=== PATIENT | female | born 1940 | race Caucasian/White ===

== ENCOUNTER 2017-02-09 14:06 | Outpatient (CLI) | payer MEDICARE, BC ==
--- NOTE | 2017-02-09 16:17 | XRAY Report ---
THREE VIEW LEFT ANKLE: 02/09/2017 CLINICAL INDICATION: Chronic ankle pain. FINDINGS: AP, lateral, and oblique views of the left ankle demonstrate no evidence of fracture or di slocation. The joint spaces are preserved. No effusion is present. IMPRESSION: NORMAL LEFT ANKLE. JOB #: [id number] EXT JOB #:[id number]
== END 2017-02-09 14:07 | disposition home or self-care (01) ==
LOC: DI 14:06
PROVIDERS: ATTEND Podiatrist
DX: M25.572 Pain in left ankle and joints of left foot (principal)

== ENCOUNTER 2018-10-11 12:41 | Emergency (ER) | payer MEDICARE ==
[2018-10-11 12:57] VITALS: BP 137/87
--- NOTE | 2018-10-11 14:25 | CT Report ---
Reason: fall, head injury, +LOC Procedure Date: 10/11/2018 Accession Number: [id number] / [id number] Procedure: CT - Head W/O CPT Code: FULL RESULT: EXAM: CT HEAD EXAM DATE: 10/11/2018 02:03 PM. CLINICAL HISTORY: Fall. COMPARISON: None. TECHNIQUE: Multiaxial CT images were obtained from the foramen magnum to the vertex. Reformats: Sagittal and coronal. IV contrast: None. In accordance with CT protocol optimization, one or more of the following dose reduction techniques were utilized for this exam: automated exposure control, adjustment of mA and/or KV based on patient size, or use of iterative reconstructive technique. FINDINGS: Parenchyma: No intraparenchymal hemorrhage. No evidence of mass, midline shift, or CT findings of acute infarction. Hypodensity within the left basal ganglia could represent remote lacunar infarct or prominent perivascular space. Watson-white differentiation is distinct. Extraaxial Spaces: Normal for age. No subdural or epidural collections identified. Ventricles: Normal in size and position. Sinuses and Orbits: Imaged paranasal sinuses, orbits, and mastoids show no significant abnormality. Bones: No evidence of fracture or calvarial defect. Other: There is mild posterior scalp soft tissue swelling. IMPRESSION: No acute intracranial CT abnormality. There is no evidence of hemorrhage or mass-effect. RADIA
--- NOTE | 2018-10-11 14:30 | ED Physician Documentation ---
PD HPI HEAD INJURY - Stated complaint Stated Complaint: GLF - Chief complaint Chief Complaint: Neuro - History obtained from History obtained from: Patient - History of Present Illness Mechanism of head injury: Fell Where head injury occurred: Street Timing - onset: How many hours ago (1) Pain level max: 5 Pain level now: 1 Location of injury: Back Quality of pain: Pain, Aching Associated symptoms: LOC (3-5 seconds). No: AMS, Amnesia, Nausea / vomiting, Neck pain, Paresthesias, Seizures, Ear drainage, Nasal drainage Symptoms improve with: Rest Symptoms worsen with: Palpation, Movement Contributing factors: No: Anticoagulated, Intoxicated Similar symptoms before: Has not had sx before Recently seen: Not recently seen Review of Systems Constitutional: denies: Fever, Chills Respiratory: denies: Cough Skin: denies: Rash Musculoskeletal: denies: Neck pain, Back pain Neurologic: denies: Focal weakness, Numbness, Confused, Altered mental status PD PAST MEDICAL HISTORY - Past Medical History Past Medical History: No - Past Surgical History Past Surgical History: No - Allergies Allergies/Adverse Reactions: Allergies Allergy/AdvReac Type Severity Reaction Status Date / Time No Known Drug Allergies Allergy Verified 10/11/18 12:51 - Living Situation Living Situation: reports: With family Living Arrangement: reports: At home - Social History Does the pt have substance abuse?: No - Family History Family history: reports: Non contributory PD ED PE NORMAL - Vitals Vital signs reviewed: Yes - General General: Alert and oriented X 3, No acute distress, Well developed/nourished - HEENT HEENT: PERRL, EOMI, Ears normal, Moist mucous membranes, Pharynx benign, Other (Occipital abrasion. Small hematoma. No palpable skull fractures) - Neck Neck: Supple, no meningeal sign, No bony TTP - Cardiac Cardiac: RRR, Strong equal pulses - Respiratory Respiratory: No respiratory distress, Clear bilaterally - Abdomen Abdomen: Soft, Non tender, Non distended - Back Back: No spinal TTP - Derm Derm: Warm and dry - Extremities Extremities: Normal ROM s pain - Neuro Neuro: Alert and oriented X 3, chair installer 2-12 intact, No motor deficit, No sensory deficit, Normal speech Eye Opening: Spontaneous Motor: Obeys Commands Verbal: Oriented GCS Score: 15 - Psych Psych: Normal mood, Normal affect Results - Vitals Vitals: Vital Signs - 24 hr 10/11/18 12:48 Temperature 36.5 C Heart Rate 92 Respiratory 18 Rate Blood Pressure 137/87 H O2 Saturation 97 Oxygen O2 Source Room air - Rads (name of study) Head CT Radiology: Prelim report reviewed, EMP read contemporaneously, See rad report (No acute intracranial abnormality) PD MEDICAL DECISION MAKING - ED course Complexity details: reviewed results, re-evaluated patient, considered differential, d/w patient, d/w family ED course: 78-year-old female presents to the emergency department with a closed head injury today. Negative head CT. No lacerations. Tetanus is up-to-date. Head injury instructions given at bedside. Patient counseled regarding signs and symptoms for which I believe and urgent re-evaluation would be necessary. Patient with good understanding of and agreement to plan and is comfortable going home at this time This document was made in part using voice recognition software. While efforts are made to proofread this document, sound alike and grammatical errors may oc cur. Departure - Departure Disposition: 01 Home, Self Care Clinical Impression: Closed head injury Qualifiers: Encounter type: initial encounter Qualified Code(s): S09.90XA - Unspecified injury of head, initial encounter Condition: Good Instructions: ED Head Injury Closed Follow-Up: Marlys Rodriguez MD [Primary Care Provider] - Within 1 week Comments: Your head CT is normal today. Return if you worsen. Keep the wound clean.
== END 2018-10-11 14:51 | disposition home or self-care (01) ==
LOC: ED 12:41
DX: S09.90XA Unspecified injury of head, initial encounter (principal); W00.0XXA Fall on same level due to ice and snow, initial encounter; Y92.410 Unspecified street and highway as the place of occurrence of the external cause
CPT/HCPCS: 70450; 99283

== ENCOUNTER 2023-02-25 19:06 | Emergency (ER) | payer MEDICARE ==
[2023-02-25] MEDS ORDERED: PROCAINAMIDE 1,000 MG in SODIUM CHLORIDE 0.9% 240 ML IV STA (19:16)
--- NOTE | 2023-02-25 19:19 | ED Physician Documentation ---
History of Present Illness - Stated complaint Stated Complaint: HEART PX - History obtained from History obtained from: Patient - Additonal information Additional information: 82-year-old woman who is anticoagulated with a DOAC and has paroxysmal atrial fibrillation and has had heart fluttering and rapid irregular heartbeat since yesterday. It is not painful. No shortness of breath. Feels like prior episodes of A-fib, that these usually go away faster. She did try to take a couple extra doses of metoprolol which was not helpful. She has never needed to be cardioverted. PD PAST MEDICAL HISTORY - Past Surgical History Past Surgical History: No - Present Medications Home Medications: Ambulatory Orders Medication Instructions Recorded Confirmed Apixaban [Eliquis] 2.5 mg PO 02/25/23 Cyclosporine [Restasis Multidose] 02/25/23 Metoprolol Succinate [Toprol Xl] 25 mg PO ONCE 02/25/23 02/25/23 Nitrofurantoin Macrocrystal 50 mg PO 02/25/23 [Macrodantin] estradioL vaginal [Estrace vaginal] 02/25/23 - Allergies Allergies/Adverse Reactions: Allergies Allergy/AdvReac Type Severity Reaction Status Date / Time Sulfa (Sulfonamide Allergy Unknown Verified 02/25/23 19:11 Antibiotics) - Social History Does the pt have substance abuse?: No PD ED PE NORMAL - Vitals Vital signs reviewed: Yes - General General: Alert and oriented X 3, No acute distress - Cardiac Cardiac: Other (Rapid and irregular without murmur) - Respiratory Respiratory: Clear bilaterally - Abdomen Abdomen: Non tender - Extremities Extremities: No edema - Neuro Neuro: Alert and oriented X 3, Normal speech Results - Vitals Vitals: Vital Signs - 24 hr 02/25/23 02/25/23 02/25/23 19:25 19:31 19:40 Temperature 36.8 C Heart Rate 114 H 123 H 119 H Respiratory 15 13 16 Rate Blood Pressure 143/96 H 122/78 122/78 O2 Saturation 99 96 99 02/25/23 02/25/23 02/25/23 20:05 20:24 20:36 Temperature Heart Rate 93 81 85 Respiratory 18 19 16 Rate Blood Pressure 117/83 H 135/95 H 120/95 H O2 Saturation 100 100 99 02/25/23 02/25/23 21:09 21:27 Temperature Heart Rate 85 67 Respiratory 16 22 Rate Blood Pressure 128/81 H 130/90 H O2 Saturation 97 100 Oxygen O2 Source Room air - EKG (time done) 1911 EKG releavant findings:: EKG personally interpreted by author of this note. Relevant findings are: Rate: Rate (enter#) (92) Rhythm: Atrial fibrillation [place]: Normal QRS: Normal Ischemia: Non specific changes. No: ST elevation c/w ischemia, ST depression 2119 EKG releavant findings:: EKG personally interpreted by author of this note. Relevant findings are: Rate: Rate (enter#) (68) Rhythm: NSR (w pac), LAE Intervals: Prolonged VT, Prolonged QT Ischemia: No: ST elevation c/w ischemia, ST depression Computer interpretation: Agree with computer - Labs Labs: Laboratory Tests 02/25/23 02/25/23 19:20 19:20 WBC 8.6 RBC 4.60 Hgb 13.3 Hct 41.7 MCV 90.7 MCH 28.9 MCHC 31.9 L RDW 14.2 Plt Count 220 MPV 10.1 Neut # (Auto) 5.1 Lymph # (Auto) 2.6 [place] # (Auto) 0.7 Eos # (Auto) 0.1 Baso # (Auto) 0.1 Absolute Nucleated RBC 0.00 Nucleated RBC % 0.0 Sodium 141 Potassium 4.4 Chloride 107 Carbon Dioxide 25 Anion Gap 9.0 BUN 30 H Creatinine 0.8 Estimated GFR (MDRD) 69 L Glucose 116 H Calcium 9.0 Magnesium 2.3 Procedures - Procedural sedation Sedation prep: Informed consent, Time out completed, PE performed, ASA 1 - healthy Sedation Medications: propofol (40mg then 30mg IVP) Mallampati classification: I Patient status during sedation: Responds to tactile Sedation recovery: Recovered uneventfully Time in sedation (Minutes): 5 - Cardioversion - Major 1 Time of attempt: 21:15 Indication: Tachyarrhythmia Risks, benefits, alternatives explained to: Pt CS via: Pads, AP approach Sync: 50j Post cardioversion rhythm: NSR Performed by: ED MD VELOZ Medical Decision Making - ED course ED course: 82-year-old woman with history of paroxysmal atrial fibrillation who is anticoagulated presents with atrial fibrillation starting yesterday afternoon that is symptomatic. No ischemic chest pain. EKG not showing ischemia. Work- up here demonstrates normal CBC and BMP with normal magnesium save an elevated BUN which may be consistent with dehydration. She was given 2.5 mg of IV metoprolol and started on procainamide drip after which she was rate controlled, but still in atrial fibrillation and after informed consent she was sedated with propofol and cardioverted on the first attempt at 50 J and recovered well. Departure - Departure Disposition: 01 Home, Self Care Clinical Impression: Atrial fibrillation Qualifiers: Atrial fibrillation type: paroxysmal Qualified Code(s): I48.0 - Paroxysmal atri al fibrillation Condition: Good Record reviewed to determine appropriate education?: Yes Instructions: Atrial Fibrillation Dc Comments: You were seen today for exacerbation of paroxysmal atrial fibrillation. We checked your electrolytes which looked fine. We did notice your BUN was up, this might be consistent with dehydration and you received some IV fluids. You received a small dose of metoprolol IV after which we gave you a procainamide drip and you were rate controlled but still in atrial fibrillation and subsequently were cardioverted with propofol on the first attempt at 50 J. You should follow-up with your doorkeeper and continue current medications. You may want to talk with your doorkeeper about a "pill in the pocket" regimen. Note to H IM: Please copy chart to her doorkeeper, Georgina Jimenez M.D., F.A.C.C. [facility], [address] [place] [address]
[2023-02-25] MEDS ORDERED: METOPROLOL 5 MG/5 ML VIAL IVP STA (19:25)
[2023-02-25] MEDS ORDERED: PROCAINAMIDE 1,000 MG/10 ML SYRINGE ONE (19:30)
[2023-02-25 19:31] LABS: BASOPHILS # (AUTO) 0.1 10^3/uL (0.0-0.1); BASOPHILS % (AUTO) 0.8 %; EOSINOPHILS # (AUTO) 0.1 10^3/uL (0.0-0.7); HCT - HEMATOCRIT 41.7 % (37.0-47.0); HGB - HEMOGLOBIN 13.3 g/dL (12.0-16.0); LYMPHOCYTES # (AUTO) 2.6 10^3/uL (1.5-3.5); LYMPHOCYTES % (AUTO) 30.2 %; MEAN CORPUSCULAR HEMOGLOBIN 28.9 pg (27.0-31.0); MEAN CORPUSCULAR HGB CONC 31.9 g/dL (32.0-36.0); MEAN CORPUSCULAR VOLUME 90.7 fL (81.0-99.0); MEAN PLATELET VOLUME 10.1 fL (7.9-10.8); MONOCYTES # (AUTO) 0.7 10^3/uL (0.0-1.0); MONOCYTES % (AUTO) 8.4 %; NEUTROPHILS # (AUTO) 5.1 10^3/uL (1.5-6.6); NEUTROPHILS % (AUTO) 59.3 %; PLT - PLATELET COUNT 220 10^3/uL (130-450); RED CELL DISTRIBUTION WIDTH 14.2 % (12.0-15.0); WHITE BLOOD COUNT 8.6 x10^3/uL (4.8-10.8)
[2023-02-25 19:34] LABS: CREATININE 0.8 mg/dL (0.4-1.0); MAGNESIUM 2.3 mg/dL (1.7-2.8); POTASSIUM 4.4 mmol/L (3.5-5.0)
[2023-02-25] MEDS ORDERED: SODIUM CHLORIDE 0.9% 1,000 ML IV STA (19:45)
[2023-02-25] MEDS ORDERED: PROPOFOL 200 MG/20 ML VIAL IVP STA (20:57)
[2023-02-25 21:44] VITALS: BP 120/65
== END 2023-02-25 21:37 | disposition home or self-care (01) ==
LOC: ED 19:06
DX: I48.0 Paroxysmal atrial fibrillation (principal); Z79.01 Long term (current) use of anticoagulants
CPT/HCPCS: 36415; 80048; 83735; 85025; 92960; 93005; 96365; 96375; 99284; 99285; J2690

== ENCOUNTER 2024-02-06 08:00 | Outpatient (CLI) | payer MEDICARE, OTHER | END 2024-02-06 23:59 | disposition home or self-care (01) | LOC: LAB.N 08:00 | PROVIDERS: ATTEND Registered Nurse | DX: R82.79 Other abnormal findings on microbiological examination of urine (principal) | CPT/HCPCS: 87086 ==